=== PATIENT | male | born 1990 | race Two or more races ===

== ENCOUNTER 2021-01-31 07:40 | Emergency (ER) | payer SELFPAY ==
[~2021-01-31] VITALS: Ht 177.8 cm; Wt 95.3 kg
--- NOTE | 2021-01-31 08:00 | NUR ---
DR DORAN AT BEDSIDE FOR EVAL
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
--- NOTE | 2021-01-31 08:05 | NUR ---
EMT AT BEDSIDE FOR WOUND CARE
--- NOTE | 2021-01-31 08:07 | NUR ---
TAKEN TO CT
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
[2021-01-31] MEDS ORDERED: IBUP-1955 PO (09:12)
--- NOTE | 2021-01-31 09:20 | NUR ---
Patient discharged to home in stable condition. Written and verbal after care instructions given. Patient verbalizes understanding of instruction.
[2021-01-31 09:21] VITALS: BP 154/73
== END 2021-01-31 09:21 | disposition home or self-care (01) ==
LOC: ER 07:44
DX: S02.2XXA Fracture of nasal bones, initial encounter for closed fracture (principal); S00.83XA Contusion of other part of head, initial encounter; Y08.89XA Assault by other specified means, initial encounter; Y93.89 Activity, other specified; Y92.89 Other specified places as the place of occurrence of the external cause; Y99.8 Other external cause status
CPT/HCPCS: 70450; 70486; 72125; 99285; A6403